=== PATIENT | female | born 1960 | race Caucasian/White ===

== ENCOUNTER 2021-07-12 14:43 | Outpatient (CLI) | payer MEDICAID ==
--- NOTE | 2021-07-12 17:12 | XRAY Report ---
PROCEDURE: Foot 2 View RT INDICATIONS: R FOOT PX TECHNIQUE: 2 views of the foot were acquired. COMPARISON: None FINDINGS: Bones: No fractures or dislocations. No suspicious bony lesions. Small plantar calcaneal bone spur. Soft tissues: No tibiotalar joint effusion. Achilles tendon appears normal. IMPRESSION: No fracture. No acute osseous lesion. If there persistent symptoms or continued clinical concern for pathology, then repeat plain film radiographs (7-10 days) or advanced imaging (CT, MR, bone scan) terry uld be considered for further evaluation. Reviewed by: Kaylyn Spencer MD, PhD on 07/12/2021 5:10 PM PST Approved by: Kaylyn Spencer MD, PhD on 07/12/2021 5:10 PM PST Station ID: [id number]
== END 2021-07-12 23:59 | disposition home or self-care (01) ==
LOC: DI.N 14:43
PROVIDERS: ATTEND Nurse Practitioner
DX: M79.671 Pain in right foot (principal)